=== PATIENT | male | born 1945 | race Caucasian/White ===

== ENCOUNTER 2018-05-28 09:48 | Inpatient (IN) ==
[2018-05-28] MEDS ORDERED: ASPIRIN 325 MG TABLET PO STA (10:35)
[2018-05-28] MEDS ORDERED: ALBUTEROL 2.5 MG/3 ML NEB RESP TX STA (10:42)
[2018-05-28] MEDS ORDERED: ONDANSETRON 4 MG/2 ML VIAL IV PRN (11:14)
[2018-05-28] MEDS ORDERED: MAGNESIUM SULF RIDER 4 GM in PREMIX 1 EACH IV PRN (11:14)
[2018-05-28] MEDS ORDERED: MORPHINE 4 MG/1 ML VIAL IV PRN (11:14)
[2018-05-28] MEDS ORDERED: guaiFENesin/DM ER 600-30 MG TABLET PO PRN (11:14)
[2018-05-28] MEDS ORDERED: DOCUSATE SODIUM 100 MG CAPSULE PO PRN (11:14)
[2018-05-28] MEDS ORDERED: POTASSIUM CHLORIDE RIDER 10 MEQ in PREMIX 1 EACH IV PRN (11:14)
[2018-05-28] MEDS ORDERED: ZALEPLON 5 MG CAPSULE PO PRN (11:14)
[2018-05-28] MEDS ORDERED: MAGNESIUM SULF RIDER 2 GM in PREMIX 1 EACH IV PRN (11:14)
[2018-05-28] MEDS ORDERED: ACETAMINOPHEN 325 MG TABLET PO PRN (11:14)
[2018-05-28] MEDS ORDERED: DEXTROSE 50% 25 GM/50 ML VIAL IV PRN (11:22)
[2018-05-28] MEDS ORDERED: GLUCAGON 1 MG VIAL IM PRN (11:22)
[2018-05-28] MEDS ORDERED: PANTOPRAZOLE 40 MG TABLET PO SCH (11:30)
[2018-05-28] MEDS ORDERED: ENOXAPARIN 80 MG/0.8 ML SYRINGE SUBCUT SCH ×2 (11:30→21:00)
[2018-05-28] MEDS ORDERED: NITROGLYCERIN 2% OINT 1 INCH/GM PACK TOP SCH (12:00)
[2018-05-28] MEDS ORDERED: FUROSEMIDE 40 MG/4 ML VIAL IV SCH (16:00)
[2018-05-28 17:10] LABS: Calcium 8.2 MG/DL (8.5-10.1); Potassium 4.3 MMOL/L (3.5-5.1)
[2018-05-28] MEDS ORDERED: NITROGLYCERIN DRIP 50 MG/250 ML BOTTLE IV ONE (17:57)
[2018-05-28] MEDS ORDERED: NITROGLYCERIN DRIP 50 MG/250 ML BOTTLE IV PRN (17:58)
[2018-05-28 18:16] LABS: ABG Base Excess -0.9 MMOL/L (-2.5-2.5); ABG HCO3 23.4 MMOL/L (20-26); ABG Oxygen Saturation 94.9 % (95-100); ABG PCO2 38.1 MM HG (35-48); ABG PH 7.407 (7.35-7.45); ABG PO2 76.2 MM HG (80-95); ABG TCO2 24.6 MMOL/L (23-27)
[2018-05-28] MEDS: METOPROLOL TARTRATE 25 MG TABLET PO SCH (18:26)
[2018-05-28] MEDS ORDERED: methylPREDNISolone SOD SUC 125 MG/2 ML VIAL IV ONE (18:28)
[2018-05-28] MEDS ORDERED: diphenhydrAMINE CAP 50 MG CAPSULE ONE (18:28)
[2018-05-28] MEDS ORDERED: diphenhydrAMINE CAP 50 MG CAPSULE PO ONE (18:28)
[2018-05-28] MEDS ORDERED: methylPREDNISolone SOD SUC 125 MG/2 ML VIAL ONE (18:28)
[2018-05-28] MEDS ORDERED: HEPARIN/NACL 0.9% 2 UNITS/ML 1,000 ML IV ONE (18:37)
[2018-05-28] MEDS ORDERED: LIDOCAINE 1%/EPI INJ 20 ML VIAL ONE ×2 (18:37→19:23)
[2018-05-28] MEDS ORDERED: MIDAZOLAM 2 MG/2 ML VIAL ONE (18:43)
[2018-05-28] MEDS ORDERED: fentaNYL 100 MCG/2 ML VIAL ONE (18:43)
[2018-05-28] MEDS ORDERED: ENOXAPARIN 60 MG/0.6 ML SYRINGE ONE (18:58)
[2018-05-28] MEDS ORDERED: HEPARIN/NACL 0.9% 2 UNITS/ML 500 ML IV ONE (19:15)
[2018-05-28] MEDS ORDERED: SODIUM CHLORIDE 0.9% 1,000 ML IV PRN (19:35)
[2018-05-28 19:56] LABS: Basophils % 0.3 % (0.0-0.8); Eosinophils % 0.1 % (0.00-10.9); Hemoglobin 12.4 GM/DL (14.0-18.0); Immature Granulocytes % 0.7 %; Immature Granulocytes Absolute 0.08 #; Lymphocytes % 8.4 % (21.2-54.2); Mean Corpuscular HGB Conc 33.5 GM/DL (32-36); Mean Corpuscular Hemoglobin 32 PG (27-34); Mean Corpuscular Volume 96.4 FL (87-102); Mean Platelet Volume 10.4 FL (9.6-12.0); Monocytes # 0.6 10*3/uL (0.11-0.8); Monocytes % 5.3 % (1.7-12.7); Neutrophils # 9.6 10*3/uL (1.4-7.4); Neutrophils % 85.2 % (38.7-73.9); Platelet Count 271 T/CUMM (130-400); Red Blood Count 3.84 MC/CUMM (3.8-5.5); Red Cell Distribution Width 12.4 % (9.3-17.3); White Blood Count 11.3 T/CUMM (4-12)
[2018-05-28] MEDS ORDERED: PAPAVERINE 60 MG/2 ML VIAL ONE (20:02)
[2018-05-28] MEDS ORDERED: CEFUROXIME 1,500 MG VIAL ONE (20:02)
[2018-05-28] MEDS ORDERED: VANCOMYCIN 1,000 MG VIAL ONE (20:03)
[2018-05-28 20:04] LABS: INR 1.2; PT Patient Result 12.6 SECS
[2018-05-28 20:05] LABS: Partial Thromboplastin Time 44.6 SECS (0-40)
[2018-05-28 20:11] LABS: Calcium 7.7 MG/DL (8.5-10.1); Osmolality,Calculated 277.7 MOS/KG (273-304); Potassium 4.4 MMOL/L (3.5-5.1)
[2018-05-28] MEDS ORDERED: SODIUM BICARBONATE 50 MEQ/50 ML SYRINGE IV ONE (20:41)
[2018-05-28] MEDS ORDERED: CALCIUM CHLORIDE 1,000 MG/10 ML SYRINGE IV ONE (20:41)
[2018-05-28] MEDS ORDERED: NITROPRUSSIDE 50 MG/2 ML VIAL ONE ×2 (20:41→20:42)
[2018-05-28] MEDS ORDERED: ATROPINE 1 MG/10 ML SYRINGE ONE (20:41)
[2018-05-28] MEDS ORDERED: SIMVASTATIN 40 MG TABLET PO SCH (21:00)
[2018-05-28] MEDS ORDERED: CARVEDILOL 3.125 MG TABLET PO SCH (21:00)
[2018-05-28 21:09] LABS: ABG Base Excess -1.1 MMOL/L (-2.5-2.5); ABG HCO3 24.4 MMOL/L (20-26); ABG Oxygen Saturation 99.5 % (95-100); ABG PCO2 43.6 MM HG (35-48); ABG PH 7.366 (7.35-7.45); ABG PO2 525.3 MM HG (80-95); ABG TCO2 25.8 MMOL/L (23-27); Glucose Heart Surgery 124 MG/DL (74-106); Hemoglobin Heart Surgery 13.4 G/DL (14.0-18.0); Potassium Heart/CVR 3.8 MMOL/L (3.5-5.1); Sodium Heart/CVR 137 MMOL/L (135-145)
[2018-05-28 21:11] LABS: Patient Temperature 37 CELCIUS
[2018-05-28] MEDS ORDERED: FAMOTIDINE 20 MG/2 ML VIAL IV ONE (21:48)
[2018-05-28] MEDS ORDERED: PHENYLEPHRINE DRIP 40 MG/250 ML PREMIX IV ONE (22:24)
[2018-05-28 22:55] LABS: Hematocrit Heart Surgery 25.5 PERCENT (42-52); Hemoglobin Heart Surgery 8.2 G/DL (14.0-18.0); PCO2 Patient Temp Venous 42.9 MM HG; PH Patient Temp Venous 7.387; PO2 Patient Temp Venous 45.7 MM HG; Potassium Heart/CVR 4.7 MMOL/L (3.5-5.1); VBG Base Excess 0.7 MEQ/L (0-4); VBG HCO3 24.8 MEQ/L (24-28); VBG Oxygen Saturation 80.8 %; VBG PCO2 42.9 MMHG (41-51); VBG PH 7.387; VBG PO2 45.7 MMHG (17-40)
[2018-05-28 23:27] LABS: Hematocrit Heart Surgery 27.2 PERCENT (42-52); Hemoglobin Heart Surgery 8.8 G/DL (14.0-18.0); PH Patient Temp Venous 7.423; PO2 Patient Temp Venous 43.4 MM HG; Potassium Heart/CVR 4.6 MMOL/L (3.5-5.1); VBG Base Excess 0.5 MEQ/L (0-4); VBG HCO3 24.6 MEQ/L (24-28); VBG PH 7.423; VBG PO2 43.4 MMHG (17-40)
[2018-05-28] MEDS ORDERED: ALBUMIN 5% 12.5 GM/250 ML VIAL IV ONE (23:51)
[2018-05-29 00:13] LABS: Hemoglobin Heart Surgery 8.6 G/DL (14.0-18.0); VBG Base Excess -0.3 MEQ/L (0-4); VBG HCO3 24.1 MEQ/L (24-28); VBG Oxygen Saturation 75.6 %; VBG PCO2 38.2 MMHG (41-51); VBG PH 7.418
[2018-05-29 00:19] LABS: PCO2 Patient Temp Venous 38.2 MM HG; PH Patient Temp Venous 7.418
[2018-05-29 00:56] LABS: ABG Base Excess -0.7 MMOL/L (-2.5-2.5); ABG HCO3 23.8 MMOL/L (20-26); ABG Oxygen Saturation 99.6 % (95-100); ABG PH 7.339 (7.35-7.45); ABG TCO2 23.4 MMOL/L (23-27); Glucose Heart Surgery 244 MG/DL (74-106); Hematocrit Heart Surgery 27.8 PERCENT (42-52); Ionized Calcium Arterial 1.25 MMOL/L (1.21-1.46); PH Patient Temp Arterial 7.339; Patient Temperature 37 CELCIUS; Potassium Heart/CVR 3.4 MMOL/L (3.5-5.1); Sodium Heart/CVR 138 MMOL/L (135-145)
[2018-05-29] MEDS ORDERED: POTASSIUM CHLORIDE RIDER 100 ML IV ONE (01:02)
[2018-05-29] MEDS ORDERED: MAGNESIUM SULF RIDER 50 ML IV ONE (01:03)
[2018-05-29] MEDS ORDERED: DEXTROSE 5% KCL 20 MEQ 20 MEQ/1,000 ML BAG IV ONE (01:15)
[2018-05-29] MEDS ORDERED: FUROSEMIDE 20 MG/2 ML VIAL ONE (01:16)
[2018-05-29] MEDS ORDERED: MAGNESIUM SULFATE 10 GM/20 ML VIAL IV ONE (01:16)
[2018-05-29] MEDS ORDERED: methylPREDNISolone SOD SUC 1,000 MG/8 ML VIAL ONE (01:16)
[2018-05-29] MEDS ORDERED: HEPARIN 10,000 UNIT/10 ML VIAL ONE (01:16)
[2018-05-29] MEDS ORDERED: PROTAMINE SULFATE 250 MG/25 ML VIAL IV ONE (01:16)
[2018-05-29] MEDS ORDERED: MANNITOL 12.5 GM/50 ML VIAL IV ONE (01:16)
[2018-05-29] MEDS ORDERED: ALBUMIN 25% 25 GM/100 ML VIAL IV ONE (01:16)
[2018-05-29] MEDS ORDERED: SODIUM CHLORIDE 0.9% 200 ML IV ONE (01:16)
[2018-05-29] MEDS ORDERED: DOBUTamine 500 MG/250 ML PREMIX IV ONE (01:37)
[2018-05-29] MEDS: DOBUTamine 500 MG/250 ML PREMIX IV PRN ×2 (01:50→06:45)
[2018-05-29] MEDS: POTASSIUM CHLORIDE RIDER 20 MEQ in PREMIX 1 EACH IV PRN ×2 (01:50→18:46)
[2018-05-29] MEDS: PHENYLEPHRINE DRIP 40 MG/250 ML PREMIX IV PRN ×5 (01:50→13:04)
[2018-05-29] MEDS: MAGNESIUM SULF RIDER 2 GM in PREMIX 1 EACH IV PRN (01:50)
[2018-05-29] MEDS: LACTATED RINGERS 1,000 ML IV PRN ×8 (01:52→18:39)
[2018-05-29] MEDS ORDERED: MIDAZOLAM 10 MG/2 ML VIAL ONE ×3 (02:03→18:04)
[2018-05-29] MEDS ORDERED: ePHEDrine 50 MG/ML AMP ONE (02:03)
[2018-05-29] MEDS ORDERED: SUFentanil 250 MCG/5 ML AMP ONE (02:03)
[2018-05-29] MEDS ORDERED: LACTATED RINGERS 250 ML IV PRN (02:20)
[2018-05-29] MEDS ORDERED: DEXTROSE 50% 25 GM/50 ML VIAL IV PRN ×2 (02:20)
[2018-05-29] MEDS ORDERED: VECURONIUM 10 MG VIAL IV PRN ×2 (02:20)
[2018-05-29] MEDS ORDERED: NITROPRUSSIDE 100 MG in DEXTROSE 5% 250 ML IV PRN (02:20)
[2018-05-29] MEDS ORDERED: INSULIN REGULAR 100 UNIT/ML IV ONE (02:20)
[2018-05-29] MEDS ORDERED: INSULIN REGULAR 100 UNIT/ML IV PRN (02:20)
[2018-05-29] MEDS ORDERED: ONDANSETRON 4 MG/2 ML VIAL IV PRN (02:20)
[2018-05-29] MEDS ORDERED: MAGNESIUM SULF RIDER 4 GM in PREMIX 1 EACH IV PRN (02:20)
[2018-05-29] MEDS ORDERED: SODIUM CHLORIDE 0.45% 1,000 ML IV SCH ×2 (02:20)
[2018-05-29] MEDS ORDERED: MIDAZOLAM 10 MG/2 ML VIAL IV PRN (02:20)
[2018-05-29] MEDS ORDERED: ACETAMINOPHEN 650 MG SUPP RECTAL PRN (02:20)
[2018-05-29 02:22] LABS: ABG Base Excess -1.7 MMOL/L (-2.5-2.5); ABG Oxygen Saturation 99.9 % (95-100); ABG PCO2 50.3 MM HG (35-48); ABG PH 7.304 (7.35-7.45); ABG TCO2 23.4 MMOL/L (23-27); Glucose Heart Surgery 185 MG/DL (74-106); Hematocrit Heart Surgery 25.8 PERCENT (42-52); Hemoglobin Heart Surgery 8.3 G/DL (14.0-18.0); Potassium Heart/CVR 3.7 MMOL/L (3.5-5.1)
[2018-05-29] MEDS: ALBUMIN 5% 12.5 GM in PREMIX 1 EACH IV PRN ×7 (02:35→09:13)
[2018-05-29 02:38] LABS: INR 1.3; PT Patient Result 13.8 SECS; Partial Thromboplastin Time 35.9 SECS (0-40)
[2018-05-29 02:39] LABS: Basophils % 0.1 % (0.0-0.8); Eosinophils % 0.2 % (0.00-10.9); Hematocrit 24.5 VOL% (42.0-52.0); Hemoglobin 8.1 GM/DL (14.0-18.0); Immature Granulocytes % 0.8 %; Lymphocytes # 0.7 10*3/uL (1.4-4.0); Lymphocytes % 5.2 % (21.2-54.2); Mean Corpuscular HGB Conc 33.1 GM/DL (32-36); Mean Corpuscular Hemoglobin 32 PG (27-34); Mean Corpuscular Volume 95.3 FL (87-102); Mean Platelet Volume 10.3 FL (9.6-12.0); Monocytes # 0.5 10*3/uL (0.11-0.8); Monocytes % 3.9 % (1.7-12.7); Neutrophils # 11.7 10*3/uL (1.4-7.4); Neutrophils % 89.8 % (38.7-73.9); Platelet Count 132 T/CUMM (130-400); Red Blood Count 2.57 MC/CUMM (3.8-5.5); Red Cell Distribution Width 14.1 % (9.3-17.3)
[2018-05-29] MEDS: CALCIUM CHLORIDE 1,000 MG/10 ML SYRINGE IV PRN ×4 (02:47→03:12)
[2018-05-29 02:53] LABS: CKMB % 9.5 %
[2018-05-29 02:57] LABS: Troponin I 21.1 NG/ML (0.00-0.045)
[2018-05-29] MEDS ORDERED: SODIUM BICARBONATE 50 MEQ/50 ML SYRINGE IV ONE ×3 (03:09→03:35)
[2018-05-29 03:14] LABS: ABG Base Excess -3.4 MMOL/L (-2.5-2.5); ABG HCO3 21.5 MMOL/L (20-26); ABG Oxygen Saturation 99.6 % (95-100); ABG PCO2 50.4 MM HG (35-48); ABG PH 7.274 (7.35-7.45); ABG TCO2 22.4 MMOL/L (23-27); Glucose Heart Surgery 162 MG/DL (74-106); Hematocrit Heart Surgery 21.7 PERCENT (42-52); Hemoglobin Heart Surgery 6.9 G/DL (14.0-18.0); Potassium Heart/CVR 3.9 MMOL/L (3.5-5.1)
[2018-05-29] MEDS ORDERED: ATROPINE 1 MG/10 ML SYRINGE IV ONE (03:19)
[2018-05-29 03:25] LABS: Albumin 2.4 G/DL (3.4-5.0); Bilirubin,Direct 0.22 MG/DL (0.0-0.20); Bilirubin,Total 0.9 MG/DL (0.2-1.0); Calcium 7.7 MG/DL (8.5-10.1); Osmolality,Calculated 289.8 MOS/KG (273-304); Potassium 3.8 MMOL/L (3.5-5.1); Total Protein 4.6 G/DL (6.4-8.3)
[2018-05-29 03:47] LABS: ABG Base Excess 0.9 MMOL/L (-2.5-2.5); ABG HCO3 25.3 MMOL/L (20-26); ABG Oxygen Saturation 99.6 % (95-100); ABG PCO2 47.8 MM HG (35-48); ABG PH 7.357 (7.35-7.45); ABG TCO2 24.8 MMOL/L (23-27); Glucose Heart Surgery 192 MG/DL (74-106); Hematocrit Heart Surgery 27.4 PERCENT (42-52); Potassium Heart/CVR 3.9 MMOL/L (3.5-5.1)
[2018-05-29 03:48] LABS: Hemoglobin Heart Surgery 8.8 G/DL (14.0-18.0)
[2018-05-29] MEDS ORDERED: ALBUTEROL/IPRATROPIUM 3 ML NEB RESP TX PRN (04:02)
[2018-05-29] MEDS: POTASSIUM CHLORIDE RIDER 10 MEQ in PREMIX 1 EACH IV PRN ×2 (04:36→19:20)
[2018-05-29] MEDS ORDERED: FUROSEMIDE 40 MG/4 ML VIAL IV ONE ×3 (04:40→18:50)
[2018-05-29] MEDS: INSULIN REGULAR DRIP 100 ML IV SCH ×2 (04:40→09:23)
[2018-05-29] MEDS: KETOROLAC 30 MG/1 ML VIAL IV SCH ×4 (04:43→20:30)
[2018-05-29 04:56] LABS: Hematocrit Heart Surgery 29.4 PERCENT (42-52); Hemoglobin Heart Surgery 9.5 G/DL (14.0-18.0); PH Patient Temp Venous 7.283; PO2 Patient Temp Venous 26.2 MM HG; Potassium Heart/CVR 4.7 MMOL/L (3.5-5.1); VBG Base Excess -2.1 MEQ/L (0-4); VBG HCO3 21.8 MEQ/L (24-28); VBG Oxygen Saturation 39.4 %; VBG PH 7.283; VBG PO2 26.2 MMHG (17-40)
[2018-05-29] MEDS ORDERED: FUROSEMIDE 40 MG/4 ML VIAL ONE (04:58)
[2018-05-29 04:59] LABS: ABG Base Excess -3.6 MMOL/L (-2.5-2.5); ABG HCO3 21.5 MMOL/L (20-26); ABG Oxygen Saturation 99.7 % (95-100); ABG PH 7.352 (7.35-7.45); Glucose Heart Surgery 181 MG/DL (74-106); Hematocrit Heart Surgery 28.8 PERCENT (42-52); Hemoglobin Heart Surgery 9.3 G/DL (14.0-18.0); Potassium Heart/CVR 4.6 MMOL/L (3.5-5.1)
[2018-05-29 05:52] LABS: Basophils % 0.1 % (0.0-0.8); Eosinophils % 0.1 % (0.00-10.9); Hematocrit 25.3 VOL% (42.0-52.0); Hemoglobin 8.2 GM/DL (14.0-18.0); Immature Granulocytes % 0.8 %; Immature Granulocytes Absolute 0.08 #; Lymphocytes # 0.8 10*3/uL (1.4-4.0); Lymphocytes % 7.9 % (21.2-54.2); Mean Corpuscular HGB Conc 32.4 GM/DL (32-36); Mean Corpuscular Hemoglobin 31 PG (27-34); Mean Corpuscular Volume 95.1 FL (87-102); Mean Platelet Volume 10.3 FL (9.6-12.0); Monocytes # 0.6 10*3/uL (0.11-0.8); Monocytes % 6.5 % (1.7-12.7); Neutrophils # 8.4 10*3/uL (1.4-7.4); Neutrophils % 84.6 % (38.7-73.9); Platelet Count 189 T/CUMM (130-400); Red Blood Count 2.66 MC/CUMM (3.8-5.5); Red Cell Distribution Width 14.8 % (9.3-17.3); White Blood Count 9.9 T/CUMM (4-12)
[2018-05-29 05:54] LABS: Albumin 3.7 G/DL (3.4-5.0); Bilirubin,Direct 0.59 MG/DL (0.0-0.20); Bilirubin,Total 1.6 MG/DL (0.2-1.0); Calcium 6.9 MG/DL (8.5-10.1); Osmolality,Calculated 287.8 MOS/KG (273-304); Total Protein 5.2 G/DL (6.4-8.3)
[2018-05-29 05:59] LABS: CKMB % 8.5 %; INR 1.5; PT Patient Result 15.3 SECS
[2018-05-29 06:00] LABS: Troponin I 19.7 NG/ML (0.00-0.045)
[2018-05-29 06:10] LABS: Partial Thromboplastin Time 53.7 SECS (0-40)
[2018-05-29] MEDS ORDERED: PANTOPRAZOLE 40 MG VIAL IV ONE (06:14)
[2018-05-29] MEDS ORDERED: PROTAMINE SULFATE 50 MG/5 ML VIAL IV ONE ×4 (06:14→14:27)
[2018-05-29 06:16] LABS: Albumin 3.5 G/DL (3.4-5.0); Bilirubin,Direct 0.62 MG/DL (0.0-0.20); Bilirubin,Total 1.6 MG/DL (0.2-1.0); Calcium 6.9 MG/DL (8.5-10.1); Osmolality,Calculated 289.7 MOS/KG (273-304); Potassium 4.1 MMOL/L (3.5-5.1); Total Protein 5.1 G/DL (6.4-8.3)
[2018-05-29] MEDS: METOPROLOL TARTRATE 25 MG TABLET PO SCH (07:05)
[2018-05-29] MEDS: ALBUTEROL/IPRATROPIUM 3 ML NEB RESP TX SCH ×5 (07:59→22:36)
[2018-05-29 08:56] LABS: ABG Base Excess -4.1 MMOL/L (-2.5-2.5); ABG Oxygen Saturation 99.2 % (95-100); ABG TCO2 20.1 MMOL/L (23-27); Glucose Heart Surgery 190 MG/DL (74-106); Hematocrit Heart Surgery 27.4 PERCENT (42-52); Hemoglobin Heart Surgery 8.8 G/DL (14.0-18.0); Potassium Heart/CVR 4.3 MMOL/L (3.5-5.1)
[2018-05-29] MEDS ORDERED: CLOPIDOGREL 75 MG TABLET PO SCH (09:00)
[2018-05-29] MEDS ORDERED: ASPIRIN EC 81 MG TABLET PO SCH (09:00)
[2018-05-29 10:29] LABS: ABG Base Excess -2.7 MMOL/L (-2.5-2.5); ABG HCO3 22.2 MMOL/L (20-26); ABG Oxygen Saturation 98.6 % (95-100); ABG PCO2 36.7 MM HG (35-48); ABG PH 7.384 (7.35-7.45); ABG TCO2 20.4 MMOL/L (23-27)
[2018-05-29] MEDS: CEFUROXIME INJ 1,500 MG in SODIUM CHLORIDE 0.9% 100 ML IV SCH ×2 (10:47→22:21)
[2018-05-29] MEDS: CHLORHEXIDINE 0.12% ORAL RINSE 60 ML BOTTLE SWISH/SPIT SCH ×2 (10:47→22:17)
[2018-05-29 11:10] LABS: Hematocrit 24.7 VOL% (42.0-52.0); Hemoglobin 8.3 GM/DL (14.0-18.0)
[2018-05-29 11:53] LABS: CKMB % 8.6 %
[2018-05-29 11:58] LABS: Troponin I 34.5 NG/ML (0.00-0.045)
[2018-05-29 13:16] LABS: ABG Base Excess -1.1 MMOL/L (-2.5-2.5); ABG HCO3 23.5 MMOL/L (20-26); ABG PCO2 34.2 MM HG (35-48); ABG PH 7.431 (7.35-7.45); ABG PO2 95.6 MM HG (80-95); Glucose Heart Surgery 133 MG/DL (74-106); Hemoglobin Heart Surgery 8.7 G/DL (14.0-18.0); Potassium Heart/CVR 4.1 MMOL/L (3.5-5.1)
[2018-05-29 14:58] LABS: ABG Base Excess 0.2 MMOL/L (-2.5-2.5); ABG HCO3 24.6 MMOL/L (20-26); ABG Oxygen Saturation 97.6 % (95-100); ABG PCO2 37.6 MM HG (35-48); ABG PH 7.421 (7.35-7.45); ABG PO2 89.7 MM HG (80-95); Glucose Heart Surgery 113 MG/DL (74-106); Hematocrit Heart Surgery 23.6 PERCENT (42-52); Hemoglobin Heart Surgery 7.6 G/DL (14.0-18.0); Potassium Heart/CVR 3.7 MMOL/L (3.5-5.1)
[2018-05-29 15:24] LABS: Albumin 3.4 G/DL (3.4-5.0); Bilirubin,Total 2.5 MG/DL (0.2-1.0); Osmolality,Calculated 288.7 MOS/KG (273-304); Potassium 3.8 MMOL/L (3.5-5.1); Total Protein 5.3 G/DL (6.4-8.3)
[2018-05-29] MEDS ORDERED: PHENYLEPHRINE INJ 80 MG in SODIUM CHLORIDE 0.9% 242 ML IV PRN (15:36)
[2018-05-29] MEDS ORDERED: PHENYLEPHRINE INJ 160 MG in SODIUM CHLORIDE 0.9% 234 ML IV PRN (15:38)
[2018-05-29] MEDS ORDERED: VANCOMYCIN 1,000 MG VIAL ONE (15:41)
[2018-05-29] MEDS ORDERED: CEFUROXIME 1,500 MG VIAL ONE (15:41)
[2018-05-29 16:44] LABS: ABG Base Excess 0.3 MMOL/L (-2.5-2.5); ABG HCO3 24.7 MMOL/L (20-26); ABG PCO2 44.3 MM HG (35-48); ABG PH 7.371 (7.35-7.45); ABG TCO2 24.2 MMOL/L (23-27); Glucose Heart Surgery 90 MG/DL (74-106); Hemoglobin Heart Surgery 7.4 G/DL (14.0-18.0); PCO2 Patient Temp Arterial 44.3 MMHG; PH Patient Temp Arterial 7.371; Patient Temperature 37 CELCIUS; Potassium Heart/CVR 3.8 MMOL/L (3.5-5.1); Sodium Heart/CVR 141 MMOL/L (135-145)
[2018-05-29] MEDS ORDERED: PHENYLEPHRINE DRIP 20 MG/250 ML PREMIX IV ONE (18:03)
[2018-05-29] MEDS ORDERED: PHENYLEPHRINE 1 MG/10 ML SYRINGE IV ONE (18:04)
[2018-05-29] MEDS ORDERED: MINERAL OIL/PETROLATUM OPH OINT 3.5 GM TUBE ONE (18:04)
[2018-05-29] MEDS ORDERED: SEVOFLURANE 1 UNIT/15 MINUTE INH ONE (18:04)
[2018-05-29] MEDS ORDERED: ROCURONIUM 100 MG/10 ML VIAL IV ONE (18:05)
[2018-05-29] MEDS ORDERED: LACTATED RINGERS 2,000 ML IV ONE (18:05)
[2018-05-29] MEDS ORDERED: SODIUM CHLORIDE 0.9% 100 ML IV ONE (18:05)
[2018-05-29 18:26] LABS: ABG Base Excess 0.1 MMOL/L (-2.5-2.5); ABG HCO3 24.5 MMOL/L (20-26); ABG Oxygen Saturation 92.8 % (95-100); ABG PCO2 40.1 MM HG (35-48); ABG PO2 65.6 MM HG (80-95); ABG TCO2 22.9 MMOL/L (23-27); Glucose Heart Surgery 117 MG/DL (74-106); Potassium Heart/CVR 3.7 MMOL/L (3.5-5.1)
[2018-05-29 18:29] LABS: VBG Base Excess 0.4 MEQ/L (0-4); VBG HCO3 24.2 MEQ/L (24-28); VBG Oxygen Saturation 56.1 %; VBG PCO2 45.8 MMHG (41-51); VBG PH 7.363; VBG PO2 31.7 MMHG (17-40)
[2018-05-29] MEDS ORDERED: AMIODARONE INJ 150 MG in DEXTROSE 5% 100 ML IV ONE (18:48)
[2018-05-29] MEDS ORDERED: FUROSEMIDE 40 MG/4 ML VIAL IV PRN (18:51)
[2018-05-29] MEDS ORDERED: AMIODARONE INJ 450 MG in DEXTROSE 5% 241 ML IV SCH (19:00)
[2018-05-29 22:05] LABS: ABG Base Excess 1.2 MMOL/L (-2.5-2.5); ABG HCO3 25.5 MMOL/L (20-26); ABG Oxygen Saturation 98.6 % (95-100); ABG PCO2 40.9 MM HG (35-48); ABG PH 7.409 (7.35-7.45); ABG TCO2 23.6 MMOL/L (23-27); Glucose Heart Surgery 132 MG/DL (74-106); Hematocrit Heart Surgery 30.4 PERCENT (42-52); Hemoglobin Heart Surgery 9.8 G/DL (14.0-18.0); Potassium Heart/CVR 4.6 MMOL/L (3.5-5.1)
[2018-05-29 23:03] LABS: CKMB % 7.8 %
[2018-05-29 23:08] LABS: Troponin I 65.1 NG/ML (0.00-0.045)
[2018-05-30] MEDS: ALBUTEROL/IPRATROPIUM 3 ML NEB RESP TX SCH ×6 (02:27→22:55)
[2018-05-30] MEDS: INSULIN REGULAR DRIP 100 ML IV SCH (02:53)
[2018-05-30] MEDS: KETOROLAC 30 MG/1 ML VIAL IV SCH ×2 (02:55→10:19)
[2018-05-30] MEDS: ALBUMIN 5% 12.5 GM in PREMIX 1 EACH IV PRN ×3 (04:04→19:44)
[2018-05-30 04:30] LABS: ABG Base Excess 1.6 MMOL/L (-2.5-2.5); ABG HCO3 25.9 MMOL/L (20-26); ABG Oxygen Saturation 97.8 % (95-100); ABG PCO2 42.9 MM HG (35-48); ABG PH 7.401 (7.35-7.45); ABG TCO2 24.4 MMOL/L (23-27); Glucose Heart Surgery 126 MG/DL (74-106); Hematocrit Heart Surgery 29.3 PERCENT (42-52); Hemoglobin Heart Surgery 9.4 G/DL (14.0-18.0); Potassium Heart/CVR 4.3 MMOL/L (3.5-5.1)
[2018-05-30] MEDS: POTASSIUM CHLORIDE RIDER 20 MEQ in PREMIX 1 EACH IV PRN ×3 (04:40→17:57)
[2018-05-30 04:43] LABS: Hematocrit 28.6 VOL% (42.0-52.0); Hemoglobin 9.3 GM/DL (14.0-18.0); Immature Granulocytes % 0.4 %; Immature Granulocytes Absolute 0.03 #; Lymphocytes # 0.5 10*3/uL (1.4-4.0); Lymphocytes % 5.6 % (21.2-54.2); Mean Corpuscular HGB Conc 32.5 GM/DL (32-36); Mean Corpuscular Hemoglobin 29 PG (27-34); Mean Corpuscular Volume 88.3 FL (87-102); Mean Platelet Volume 11.3 FL (9.6-12.0); Monocytes # 0.5 10*3/uL (0.11-0.8); Monocytes % 5.6 % (1.7-12.7); Neutrophils # 7.6 10*3/uL (1.4-7.4); Neutrophils % 88.4 % (38.7-73.9); Platelet Count 141 T/CUMM (130-400); Red Blood Count 3.24 MC/CUMM (3.8-5.5); Red Cell Distribution Width 17.2 % (9.3-17.3); White Blood Count 8.6 T/CUMM (4-12)
[2018-05-30 05:06] LABS: Polychromasia Few
[2018-05-30 05:07] LABS: Hypochromasia Slight; Platelet Estimate Adequate
[2018-05-30 05:25] LABS: CKMB % 5.3 %
[2018-05-30 05:26] LABS: Troponin I 80.4 NG/ML (0.00-0.045)
[2018-05-30 05:32] LABS: Bilirubin,Direct 0.96 MG/DL (0.0-0.20); Bilirubin,Total 2.4 MG/DL (0.2-1.0); Calcium 7.8 MG/DL (8.5-10.1); Osmolality,Calculated 290.8 MOS/KG (273-304); Potassium 4.4 MMOL/L (3.5-5.1)
[2018-05-30] MEDS: MAGNESIUM SULF RIDER 2 GM in PREMIX 1 EACH IV PRN (07:55)
[2018-05-30 08:17] LABS: Apearance,Urine CLEAR (Clear); Bilirubin,Urine Negative (Negative); Blood, Urine Negative (Negative); Glucose,Urine (UA) Negative (Negative); Ketones,Urine Negative (Negative); Mucus,Urine Occasional /LPF (Occasional); Nitrite,Urine Negative (Negative); Protein,Urine Negative; RBC,Urine <1 /HPF (0-4); Urine Color Yellow (Yellow); Urine Specific Gravity 1.009 (1.001-1.035); Urine Urobilinogen < 2.0 EU/DL (0.2-1.0)
[2018-05-30] MEDS ORDERED: CALCIUM GLUCONATE 1,000 MG in SODIUM CHLORIDE 0.9% 100 ML IV ONE (10:00)
[2018-05-30] MEDS: PANTOPRAZOLE 40 MG VIAL IV SCH ×2 (10:16→20:07)
[2018-05-30] MEDS: PROPOFOL 1,000 MG/100 ML BOTTLE IV SCH (10:16)
[2018-05-30] MEDS: CEFUROXIME INJ 1,500 MG in SODIUM CHLORIDE 0.9% 100 ML IV SCH (10:17)
[2018-05-30] MEDS: CHLORHEXIDINE 0.12% ORAL RINSE 60 ML BOTTLE SWISH/SPIT SCH ×2 (10:17→20:08)
[2018-05-30] MEDS: DOBUTamine 500 MG/250 ML PREMIX IV PRN (10:25)
[2018-05-30] MEDS: INSULIN REGULAR 100 UNIT/ML SUBCUT SCH ×4 (12:47→23:36)
[2018-05-30] MEDS ORDERED: FUROSEMIDE 40 MG/4 ML VIAL IV ONE (14:00)
[2018-05-30] MEDS ORDERED: HEPARIN/NACL 0.9% 2 UNITS/ML 500 ML IV ONE (17:33)
[2018-05-30 17:52] LABS: ABG Base Excess 3.4 MMOL/L (-2.5-2.5); ABG HCO3 27.5 MMOL/L (20-26); ABG Oxygen Saturation 97.3 % (95-100); ABG PCO2 45.2 MM HG (35-48); ABG PH 7.409 (7.35-7.45); ABG PO2 97.8 MM HG (80-95); ABG TCO2 26.3 MMOL/L (23-27); Glucose Heart Surgery 144 MG/DL (74-106); Hematocrit Heart Surgery 28.1 PERCENT (42-52); Potassium Heart/CVR 4.1 MMOL/L (3.5-5.1)
[2018-05-30] MEDS ORDERED: LIDOCAINE 100 MG/5 ML SYRINGE IV ONE (18:24)
[2018-05-30] MEDS ORDERED: LIDOCAINE DRIP 2,000 MG/250 ML PREMIX IV SCH (18:30)
[2018-05-30] MEDS: SODIUM CHLORIDE 0.45% 1,000 ML IV SCH ×2 (21:16→21:17)
[2018-05-31] MEDS: ALBUTEROL/IPRATROPIUM 3 ML NEB RESP TX SCH ×6 (03:04→23:11)
[2018-05-31 03:13] LABS: ABG Base Excess 5.8 MMOL/L (-2.5-2.5); ABG HCO3 30.2 MMOL/L (20-26); ABG Oxygen Saturation 97.3 % (95-100); ABG PCO2 43.3 MM HG (35-48); ABG PH 7.461 (7.35-7.45); ABG TCO2 31.5 MMOL/L (23-27); Glucose Heart Surgery 100 MG/DL (74-106); Hemoglobin Heart Surgery 9.2 G/DL (14.0-18.0)
[2018-05-31 03:24] LABS: Hematocrit 25.5 VOL% (42.0-52.0); Hemoglobin 8.3 GM/DL (14.0-18.0); Immature Granulocytes % 0.7 %; Immature Granulocytes Absolute 0.07 #; Lymphocytes # 0.8 10*3/uL (1.4-4.0); Lymphocytes % 8.5 % (21.2-54.2); Mean Corpuscular HGB Conc 32.5 GM/DL (32-36); Mean Corpuscular Hemoglobin 29 PG (27-34); Mean Corpuscular Volume 89.8 FL (87-102); Mean Platelet Volume 12.1 FL (9.6-12.0); Monocytes # 0.5 10*3/uL (0.11-0.8); Monocytes % 5.4 % (1.7-12.7); Neutrophils # 8.3 10*3/uL (1.4-7.4); Neutrophils % 85.4 % (38.7-73.9); Platelet Count 95 T/CUMM (130-400); Red Blood Count 2.84 MC/CUMM (3.8-5.5); White Blood Count 9.7 T/CUMM (4-12)
[2018-05-31] MEDS: INSULIN REGULAR 100 UNIT/ML SUBCUT SCH ×6 (03:48→23:17)
[2018-05-31 03:59] LABS: Albumin 3.3 G/DL (3.4-5.0); Bilirubin,Direct 0.9 MG/DL (0.0-0.20); Bilirubin,Total 2.1 MG/DL (0.2-1.0); Calcium 7.8 MG/DL (8.5-10.1); Osmolality,Calculated 293.8 MOS/KG (273-304); Potassium 4.1 MMOL/L (3.5-5.1); Total Protein 5.2 G/DL (6.4-8.3)
[2018-05-31] MEDS: POTASSIUM CHLORIDE RIDER 20 MEQ in PREMIX 1 EACH IV PRN ×3 (03:59→14:25)
[2018-05-31 04:02] LABS: Risk Ratio 2.58; VLDL CHOLESTEROL 16.6 MG/DL
[2018-05-31] MEDS: ALBUMIN 5% 12.5 GM in PREMIX 1 EACH IV PRN ×2 (04:43→12:09)
[2018-05-31] MEDS ORDERED: FUROSEMIDE 40 MG/4 ML VIAL IV ONE ×2 (05:00→14:20)
[2018-05-31 05:06] LABS: Band Neutrophils 7 % (0-10); Lymphocytes 7 % (20-55); Nucleated Red Blood Cells 1 (0-5); Segmented Neutrophils 84 % (50-85); Total Cells Counted 100
[2018-05-31 05:07] LABS: Hypochromasia Slight; Microcytosis 1+; Platelet Estimate Decreased; Polychromasia Slight
[2018-05-31] MEDS: PANTOPRAZOLE 40 MG VIAL IV SCH ×2 (08:47→20:20)
[2018-05-31] MEDS: CHLORHEXIDINE 0.12% ORAL RINSE 60 ML BOTTLE SWISH/SPIT SCH ×2 (08:48→20:20)
[2018-05-31] MEDS: PROPOFOL 1,000 MG/100 ML BOTTLE IV SCH ×2 (08:52→22:44)
[2018-05-31] MEDS: MIDAZOLAM 2 MG/2 ML VIAL IV PRN ×2 (10:59→14:56)
[2018-05-31 11:47] LABS: ABG Base Excess 3.7 MMOL/L (-2.5-2.5); ABG Oxygen Saturation 97.5 % (95-100); ABG PCO2 35.8 MM HG (35-48); ABG PH 7.496 (7.35-7.45); ABG PO2 111.8 MM HG (80-95); ABG TCO2 28.1 MMOL/L (23-27); Glucose Heart Surgery 110 MG/DL (74-106); Hemoglobin Heart Surgery 10.1 G/DL (14.0-18.0); Potassium Heart/CVR 4.5 MMOL/L (3.5-5.1)
[2018-05-31] MEDS: SODIUM CHLORIDE 0.45% 1,000 ML IV SCH ×4 (12:09→19:30)
[2018-05-31] MEDS: METOPROLOL TARTRATE 25 MG TABLET NG SCH ×3 (12:10→20:20)
[2018-05-31] MEDS: POTASSIUM CHLORIDE RIDER 10 MEQ in PREMIX 1 EACH IV PRN ×2 (17:39→20:38)
[2018-05-31] MEDS: MORPHINE 4 MG/1 ML VIAL IV PRN (19:45)
[2018-05-31 20:26] LABS: Basophils % 0.1 % (0.0-0.8); Eosinophils % 0.1 % (0.00-10.9); Hemoglobin 9.5 GM/DL (14.0-18.0); Immature Granulocytes % 1.2 %; Immature Granulocytes Absolute 0.12 #; Lymphocytes # 0.9 10*3/uL (1.4-4.0); Mean Corpuscular HGB Conc 32.8 GM/DL (32-36); Mean Corpuscular Hemoglobin 29 PG (27-34); Mean Corpuscular Volume 88.7 FL (87-102); Mean Platelet Volume 11.9 FL (9.6-12.0); Monocytes # 0.6 10*3/uL (0.11-0.8); Monocytes % 5.9 % (1.7-12.7); Neutrophils # 8.3 10*3/uL (1.4-7.4); Neutrophils % 83.7 % (38.7-73.9); Red Blood Count 3.27 MC/CUMM (3.8-5.5); Red Cell Distribution Width 16.7 % (9.3-17.3); White Blood Count 9.9 T/CUMM (4-12)
[2018-05-31 20:42] LABS: Platelet Count 78 T/CUMM (130-400)
[2018-05-31 22:18] LABS: Hypochromasia 1+; Microcytosis 1+
[2018-05-31 22:19] LABS: Platelet Estimate Decreased
[2018-06-01] MEDS: POTASSIUM CHLORIDE RIDER 20 MEQ in PREMIX 1 EACH IV PRN (00:04)
[2018-06-01] MEDS: ALBUTEROL/IPRATROPIUM 3 ML NEB RESP TX SCH ×6 (03:18→23:21)
[2018-06-01 03:19] LABS: ABG Base Excess 5.1 MMOL/L (-2.5-2.5); ABG HCO3 29.1 MMOL/L (20-26); ABG PCO2 37.8 MM HG (35-48); ABG PH 7.488 (7.35-7.45); Glucose Heart Surgery 108 MG/DL (74-106); Hematocrit Heart Surgery 31.1 PERCENT (42-52); Hemoglobin Heart Surgery 10.1 G/DL (14.0-18.0); Potassium Heart/CVR 4.5 MMOL/L (3.5-5.1)
[2018-06-01 03:22] LABS: Basophils % 0.1 % (0.0-0.8); Eosinophils % 0.1 % (0.00-10.9); Hematocrit 29.3 VOL% (42.0-52.0); Hemoglobin 9.5 GM/DL (14.0-18.0); Immature Granulocytes % 0.8 %; Immature Granulocytes Absolute 0.08 #; Lymphocytes # 0.9 10*3/uL (1.4-4.0); Lymphocytes % 8.4 % (21.2-54.2); Mean Corpuscular HGB Conc 32.4 GM/DL (32-36); Mean Corpuscular Hemoglobin 29 PG (27-34); Mean Corpuscular Volume 89.6 FL (87-102); Mean Platelet Volume 12.1 FL (9.6-12.0); Monocytes # 0.6 10*3/uL (0.11-0.8); Monocytes % 6.3 % (1.7-12.7); NRBC # 0.03 10*3/uL; Neutrophils # 8.5 10*3/uL (1.4-7.4); Neutrophils % 84.3 % (38.7-73.9); Red Blood Count 3.27 MC/CUMM (3.8-5.5); Red Cell Distribution Width 16.3 % (9.3-17.3); White Blood Count 10.1 T/CUMM (4-12)
[2018-06-01 03:24] LABS: Platelet Count 75 T/CUMM (130-400)
[2018-06-01] MEDS: INSULIN REGULAR 100 UNIT/ML SUBCUT SCH ×6 (03:26→23:42)
[2018-06-01 03:43] LABS: Albumin 3.3 G/DL (3.4-5.0); Bilirubin,Total 2.2 MG/DL (0.2-1.0); CKMB % 1.5 %; Calcium 7.8 MG/DL (8.5-10.1); Osmolality,Calculated 287.4 MOS/KG (273-304); Potassium 4.6 MMOL/L (3.5-5.1); Total Protein 5.3 G/DL (6.4-8.3); Troponin I 22.3 NG/ML (0.00-0.045)
[2018-06-01 03:55] LABS: Hypochromasia Slight; Microcytosis 1+; Platelet Estimate Decreased
[2018-06-01] MEDS: DOBUTamine 500 MG/250 ML PREMIX IV PRN (04:30)
[2018-06-01] MEDS: POTASSIUM CHLORIDE RIDER 10 MEQ in PREMIX 1 EACH IV PRN (04:33)
[2018-06-01] MEDS: MORPHINE 10 MG/1 ML VIAL IV PRN ×4 (04:44→20:11)
[2018-06-01] MEDS: PANTOPRAZOLE 40 MG VIAL IV SCH ×2 (08:13→21:22)
[2018-06-01] MEDS: METOPROLOL TARTRATE 25 MG TABLET NG SCH ×2 (08:13→21:22)
[2018-06-01] MEDS: CHLORHEXIDINE 0.12% ORAL RINSE 60 ML BOTTLE SWISH/SPIT SCH ×2 (08:13→21:22)
[2018-06-01 09:47] LABS: ABG HCO3 28.9 MMOL/L (20-26); ABG Oxygen Saturation 97.9 % (95-100); ABG PCO2 43.5 MM HG (35-48); ABG PH 7.442 (7.35-7.45); ABG TCO2 26.9 MMOL/L (23-27); Glucose Heart Surgery 104 MG/DL (74-106); Hematocrit Heart Surgery 30.8 PERCENT (42-52); Hemoglobin Heart Surgery 9.9 G/DL (14.0-18.0); Potassium Heart/CVR 4.4 MMOL/L (3.5-5.1)
[2018-06-01] MEDS: PROPOFOL 1,000 MG/100 ML BOTTLE IV SCH (14:37)
[2018-06-01] MEDS ORDERED: HEPARIN/NACL 0.9% 2 UNITS/ML 500 ML IV ONE (17:12)
[2018-06-01] MEDS: APIXABAN 2.5 MG TABLET PO SCH (21:22)
[2018-06-01] MEDS: SODIUM CHLORIDE 0.45% 1,000 ML IV SCH ×2 (21:38)
[2018-06-02] MEDS: MORPHINE 10 MG/1 ML VIAL IV PRN ×6 (01:14→21:15)
[2018-06-02] MEDS: ALBUTEROL/IPRATROPIUM 3 ML NEB RESP TX SCH ×6 (03:42→23:14)
[2018-06-02 03:57] LABS: ABG Base Excess 3.7 MMOL/L (-2.5-2.5); ABG HCO3 27.7 MMOL/L (20-26); ABG Oxygen Saturation 98.4 % (95-100); ABG PCO2 46.6 MM HG (35-48); ABG PH 7.403 (7.35-7.45); ABG TCO2 26.3 MMOL/L (23-27)
[2018-06-02 04:04] LABS: Basophils % 0.1 % (0.0-0.8); Eosinophils % 0.2 % (0.00-10.9); Hematocrit 31.5 VOL% (42.0-52.0); Hemoglobin 9.9 GM/DL (14.0-18.0); Immature Granulocytes % 0.6 %; Immature Granulocytes Absolute 0.06 #; Lymphocytes # 0.7 10*3/uL (1.4-4.0); Lymphocytes % 6.6 % (21.2-54.2); Mean Corpuscular HGB Conc 31.4 GM/DL (32-36); Mean Corpuscular Hemoglobin 28 PG (27-34); Mean Corpuscular Volume 90.5 FL (87-102); Mean Platelet Volume 11.7 FL (9.6-12.0); Monocytes # 0.9 10*3/uL (0.11-0.8); Monocytes % 8.7 % (1.7-12.7); Neutrophils # 8.6 10*3/uL (1.4-7.4); Neutrophils % 83.8 % (38.7-73.9); Platelet Count 93 T/CUMM (130-400); Red Blood Count 3.48 MC/CUMM (3.8-5.5); Red Cell Distribution Width 15.9 % (9.3-17.3); White Blood Count 10.3 T/CUMM (4-12)
[2018-06-02 04:41] LABS: Calcium 7.6 MG/DL (8.5-10.1); Osmolality,Calculated 278.8 MOS/KG (273-304); Potassium 4.4 MMOL/L (3.5-5.1)
[2018-06-02 04:43] LABS: Hypochromasia 1+; Microcytosis 1+; Platelet Estimate Decreased
[2018-06-02] MEDS: INSULIN REGULAR 100 UNIT/ML SUBCUT SCH ×5 (04:45→20:15)
[2018-06-02] MEDS: METOPROLOL TARTRATE 25 MG TABLET NG SCH ×2 (09:25→21:13)
[2018-06-02] MEDS: PANTOPRAZOLE 40 MG VIAL IV SCH ×2 (09:25→21:13)
[2018-06-02] MEDS: APIXABAN 2.5 MG TABLET PO SCH ×2 (09:25→21:13)
[2018-06-02] MEDS: SODIUM CHLORIDE 0.9% 1,000 ML IV SCH (09:26)
[2018-06-02] MEDS: CHLORHEXIDINE 0.12% ORAL RINSE 60 ML BOTTLE SWISH/SPIT SCH ×2 (09:27→21:14)
[2018-06-02] MEDS: DILTIAZEM INJ 100 MG in SODIUM CHLORIDE 0.9% 100 ML IV SCH ×2 (11:40→23:02)
[2018-06-02] MEDS ORDERED: DILTIAZEM 25 MG/5 ML VIAL IV ONE (11:44)
[2018-06-02] MEDS ORDERED: SODIUM CHLORIDE 0.9% 100 ML IV ONE (11:44)
[2018-06-02] MEDS ORDERED: DILTIAZEM 100 MG VIAL.ADD IV ONE (11:44)
[2018-06-02] MEDS ORDERED: DILTIAZEM 50 MG/10 ML VIAL IV ONE (12:33)
[2018-06-02] MEDS: ASPIRIN CHEW 81 MG TABLET PO SCH (13:51)
[2018-06-02] MEDS: PROPOFOL 1,000 MG/100 ML BOTTLE IV SCH (13:51)
[2018-06-03] MEDS: MORPHINE 10 MG/1 ML VIAL IV PRN (00:20)
[2018-06-03] MEDS: INSULIN REGULAR 100 UNIT/ML SUBCUT SCH ×7 (01:00→23:47)
[2018-06-03] MEDS: ALBUTEROL/IPRATROPIUM 3 ML NEB RESP TX SCH ×6 (03:30→23:19)
[2018-06-03 04:07] LABS: ABG Base Excess 3.1 MMOL/L (-2.5-2.5); ABG HCO3 27.2 MMOL/L (20-26); ABG Oxygen Saturation 97.7 % (95-100); ABG PCO2 48.6 MM HG (35-48); ABG PH 7.382 (7.35-7.45); ABG TCO2 26.2 MMOL/L (23-27)
[2018-06-03 04:25] LABS: Basophils % 0.1 % (0.0-0.8); Eosinophils % 0.1 % (0.00-10.9); Hematocrit 31.1 VOL% (42.0-52.0); Hemoglobin 9.8 GM/DL (14.0-18.0); Immature Granulocytes % 0.4 %; Immature Granulocytes Absolute 0.04 #; Lymphocytes # 0.6 10*3/uL (1.4-4.0); Lymphocytes % 5.6 % (21.2-54.2); Mean Corpuscular HGB Conc 31.5 GM/DL (32-36); Mean Corpuscular Hemoglobin 29 PG (27-34); Mean Corpuscular Volume 91.5 FL (87-102); Mean Platelet Volume 11.6 FL (9.6-12.0); Monocytes # 1.1 10*3/uL (0.11-0.8); Monocytes % 10.3 % (1.7-12.7); Neutrophils # 8.7 10*3/uL (1.4-7.4); Neutrophils % 83.5 % (38.7-73.9); Platelet Count 117 T/CUMM (130-400); Red Cell Distribution Width 15.8 % (9.3-17.3); White Blood Count 10.4 T/CUMM (4-12)
[2018-06-03 04:39] LABS: Calcium 7.7 MG/DL (8.5-10.1); Osmolality,Calculated 286.4 MOS/KG (273-304); Potassium 4.4 MMOL/L (3.5-5.1)
[2018-06-03 04:42] LABS: Albumin 2.8 G/DL (3.4-5.0); Bilirubin,Direct 2.2 MG/DL (0.0-0.20); Bilirubin,Indirect 1.7 MG/DL (0.0-1.0); Bilirubin,Total 3.9 MG/DL (0.2-1.0); Total Protein 5.2 G/DL (6.4-8.3)
[2018-06-03] MEDS: POTASSIUM CHLORIDE RIDER 20 MEQ in PREMIX 1 EACH IV PRN (05:35)
[2018-06-03] MEDS: PANTOPRAZOLE 40 MG VIAL IV SCH ×2 (08:25→20:31)
[2018-06-03] MEDS: CHLORHEXIDINE 0.12% ORAL RINSE 60 ML BOTTLE SWISH/SPIT SCH ×2 (08:25→20:31)
[2018-06-03] MEDS: APIXABAN 2.5 MG TABLET PO SCH (08:25)
[2018-06-03] MEDS: METOPROLOL TARTRATE 25 MG TABLET NG SCH ×2 (08:25→20:31)
[2018-06-03] MEDS: ASPIRIN CHEW 81 MG TABLET PO SCH (08:25)
[2018-06-03] MEDS: DILTIAZEM 60 MG TABLET PO SCH ×2 (09:05→20:31)
[2018-06-03] MEDS: PROPOFOL 1,000 MG/100 ML BOTTLE IV SCH ×2 (09:32→15:45)
[2018-06-03] MEDS: SODIUM CHLORIDE 0.9% 1,000 ML IV SCH (09:34)
[2018-06-03 09:50] LABS: ABG Base Excess 3.9 MMOL/L (-2.5-2.5); ABG HCO3 27.8 MMOL/L (20-26); ABG PCO2 42.5 MM HG (35-48); ABG PH 7.435 (7.35-7.45); ABG PO2 57.8 MM HG (80-95); ABG TCO2 25.7 MMOL/L (23-27); Glucose Heart Surgery 118 MG/DL (74-106); Hematocrit Heart Surgery 33.3 PERCENT (42-52); Hemoglobin Heart Surgery 10.8 G/DL (14.0-18.0); Potassium Heart/CVR 4.5 MMOL/L (3.5-5.1)
[2018-06-03] MEDS: MORPHINE 4 MG/1 ML VIAL IV PRN ×3 (10:44→20:32)
[2018-06-03] MEDS: methylPREDNISolone SOD SUC 40 MG/1 ML VIAL IV SCH ×2 (11:47→18:05)
[2018-06-03] MEDS ORDERED: FUROSEMIDE 40 MG/4 ML VIAL IV ONE ×2 (13:23→22:00)
[2018-06-03 14:42] LABS: ABG Base Excess 3.7 MMOL/L (-2.5-2.5); ABG HCO3 27.7 MMOL/L (20-26); ABG Oxygen Saturation 95.1 % (95-100); ABG PCO2 51.7 MM HG (35-48); ABG PH 7.371 (7.35-7.45); ABG PO2 79.2 MM HG (80-95); Glucose Heart Surgery 155 MG/DL (74-106); Hematocrit Heart Surgery 34.1 PERCENT (42-52); Potassium Heart/CVR 4.7 MMOL/L (3.5-5.1)
[2018-06-03] MEDS: PHENYLEPHRINE DRIP 40 MG/250 ML PREMIX IV PRN (15:30)
[2018-06-03] MEDS: ALBUMIN 5% 12.5 GM in PREMIX 1 EACH IV PRN (15:45)
[2018-06-03 16:30] LABS: ABG Base Excess 3.6 MMOL/L (-2.5-2.5); ABG HCO3 27.7 MMOL/L (20-26); ABG Oxygen Saturation 99.8 % (95-100); ABG PCO2 39.7 MM HG (35-48); ABG PH 7.453 (7.35-7.45); ABG TCO2 25.3 MMOL/L (23-27)
[2018-06-03] MEDS ORDERED: ETOMIDATE 40 MG/20 ML VIAL IV ONE (16:31)
[2018-06-03] MEDS ORDERED: SUCCINYLCHOLINE 200 MG/10 ML VIAL ONE (16:31)
[2018-06-03] MEDS: ROSUVASTATIN 20 MG TABLET PO SCH (20:31)
[2018-06-04] MEDS: PHENYLEPHRINE DRIP 40 MG/250 ML PREMIX IV PRN ×2 (01:52→08:22)
[2018-06-04] MEDS: methylPREDNISolone SOD SUC 40 MG/1 ML VIAL IV SCH ×3 (02:55→18:13)
[2018-06-04] MEDS: PROPOFOL 1,000 MG/100 ML BOTTLE IV SCH ×3 (02:56→22:13)
[2018-06-04] MEDS: ALBUTEROL/IPRATROPIUM 3 ML NEB RESP TX SCH ×6 (03:20→23:20)
[2018-06-04 03:57] LABS: Basophils % 0.1 % (0.0-0.8); Hematocrit 30.3 VOL% (42.0-52.0); Hemoglobin 9.7 GM/DL (14.0-18.0); Immature Granulocytes Absolute 0.12 #; Lymphocytes # 0.8 10*3/uL (1.4-4.0); Lymphocytes % 6.2 % (21.2-54.2); Mean Corpuscular Hemoglobin 29 PG (27-34); Mean Platelet Volume 11.2 FL (9.6-12.0); Monocytes # 0.6 10*3/uL (0.11-0.8); Monocytes % 4.9 % (1.7-12.7); NRBC # 0.02 10*3/uL; Neutrophils # 10.7 10*3/uL (1.4-7.4); Neutrophils % 87.8 % (38.7-73.9); Platelet Count 185 T/CUMM (130-400); Red Blood Count 3.33 MC/CUMM (3.8-5.5); Red Cell Distribution Width 15.9 % (9.3-17.3); White Blood Count 12.1 T/CUMM (4-12)
[2018-06-04 03:58] LABS: ABG Base Excess 4.8 MMOL/L (-2.5-2.5); ABG HCO3 28.8 MMOL/L (20-26); ABG Oxygen Saturation 99.2 % (95-100); ABG PCO2 34.4 MM HG (35-48); ABG PH 7.514 (7.35-7.45); ABG TCO2 25.1 MMOL/L (23-27)
[2018-06-04 04:18] LABS: Calcium 8.1 MG/DL (8.5-10.1); Osmolality,Calculated 293.1 MOS/KG (273-304)
[2018-06-04] MEDS: INSULIN REGULAR 100 UNIT/ML SUBCUT SCH ×5 (04:28→20:55)
[2018-06-04] MEDS: POTASSIUM CHLORIDE RIDER 20 MEQ in PREMIX 1 EACH IV PRN ×2 (04:40→12:58)
[2018-06-04 05:37] LABS: ABG Base Excess 4.1 MMOL/L (-2.5-2.5); ABG HCO3 28.1 MMOL/L (20-26); ABG Oxygen Saturation 97.2 % (95-100); ABG PCO2 40.7 MM HG (35-48); ABG PH 7.451 (7.35-7.45); ABG PO2 91.6 MM HG (80-95); ABG TCO2 25.7 MMOL/L (23-27)
[2018-06-04] MEDS: SODIUM CHLORIDE 0.9% 1,000 ML IV SCH (08:22)
[2018-06-04] MEDS: PANTOPRAZOLE 40 MG VIAL IV SCH ×2 (08:23→21:24)
[2018-06-04] MEDS: CHLORHEXIDINE 0.12% ORAL RINSE 60 ML BOTTLE SWISH/SPIT SCH ×2 (08:24→21:24)
[2018-06-04] MEDS: METOPROLOL TARTRATE 50 MG TABLET NG SCH ×2 (09:12→21:24)
[2018-06-04] MEDS ORDERED: ENOXAPARIN 40 MG/0.4 ML SYRINGE SUBCUT SCH (11:00)
[2018-06-04] MEDS ORDERED: GLUCAGON 1 MG VIAL IM PRN (12:44)
[2018-06-04] MEDS: MORPHINE 10 MG/1 ML VIAL IV PRN (20:51)
[2018-06-04] MEDS: ROSUVASTATIN 20 MG TABLET PO SCH (21:24)
[2018-06-05] MEDS: INSULIN REGULAR 100 UNIT/ML SUBCUT SCH ×6 (00:50→21:03)
[2018-06-05] MEDS: ALBUTEROL/IPRATROPIUM 3 ML NEB RESP TX SCH ×6 (03:10→22:59)
[2018-06-05] MEDS: methylPREDNISolone SOD SUC 40 MG/1 ML VIAL IV SCH ×3 (03:55→18:14)
[2018-06-05] MEDS: MORPHINE 10 MG/1 ML VIAL IV PRN ×2 (04:05→12:40)
[2018-06-05 04:18] LABS: ABG Base Excess 6.2 MMOL/L (-2.5-2.5); ABG HCO3 30.5 MMOL/L (20-26); ABG Oxygen Saturation 94.9 % (95-100); ABG PCO2 43.2 MM HG (35-48); ABG PH 7.467 (7.35-7.45); ABG PO2 83.9 MM HG (80-95); ABG TCO2 31.8 MMOL/L (23-27)
[2018-06-05 04:50] LABS: Basophils % 0.1 % (0.0-0.8); Hematocrit 29.4 VOL% (42.0-52.0); Hemoglobin 9.5 GM/DL (14.0-18.0); Immature Granulocytes % 1.1 %; Immature Granulocytes Absolute 0.15 #; Lymphocytes # 0.6 10*3/uL (1.4-4.0); Lymphocytes % 4.6 % (21.2-54.2); Mean Corpuscular HGB Conc 32.3 GM/DL (32-36); Mean Corpuscular Hemoglobin 29 PG (27-34); Mean Corpuscular Volume 90.7 FL (87-102); Mean Platelet Volume 11.2 FL (9.6-12.0); Monocytes # 0.8 10*3/uL (0.11-0.8); Monocytes % 6.2 % (1.7-12.7); Neutrophils # 11.7 10*3/uL (1.4-7.4); Platelet Count 192 T/CUMM (130-400); Red Blood Count 3.24 MC/CUMM (3.8-5.5); Red Cell Distribution Width 16.3 % (9.3-17.3); White Blood Count 13.3 T/CUMM (4-12)
[2018-06-05 04:52] LABS: Calcium 7.6 MG/DL (8.5-10.1); Potassium 3.9 MMOL/L (3.5-5.1)
[2018-06-05] MEDS: POTASSIUM CHLORIDE RIDER 20 MEQ in PREMIX 1 EACH IV PRN (06:05)
[2018-06-05] MEDS: POTASSIUM CHLORIDE RIDER 10 MEQ in PREMIX 1 EACH IV PRN (07:10)
[2018-06-05 07:19] LABS: Band Neutrophils 1 % (0-10); Lymphocytes 12 % (20-55); Nucleated Red Blood Cells 1 (0-5); Platelet Estimate Normal; Segmented Neutrophils 85 % (50-85); Total Cells Counted 100
[2018-06-05] MEDS: METOPROLOL TARTRATE 50 MG TABLET NG SCH (08:30)
[2018-06-05] MEDS: PANTOPRAZOLE 40 MG VIAL IV SCH ×2 (08:30→21:04)
[2018-06-05] MEDS: CHLORHEXIDINE 0.12% ORAL RINSE 60 ML BOTTLE SWISH/SPIT SCH ×2 (08:34→21:04)
[2018-06-05] MEDS: SODIUM CHLORIDE 0.9% 1,000 ML IV SCH (08:38)
[2018-06-05] MEDS ORDERED: ENOXAPARIN 40 MG/0.4 ML SYRINGE SUBCUT SCH (10:00)
[2018-06-05] MEDS: LISINOPRIL 5 MG TABLET PO SCH ×2 (11:00→21:20)
[2018-06-05] MEDS: PROPOFOL 1,000 MG/100 ML BOTTLE IV SCH ×2 (11:01→15:41)
[2018-06-05] MEDS: METOPROLOL TARTRATE 50 MG TABLET PO SCH ×2 (15:41→21:03)
[2018-06-05] MEDS: ROSUVASTATIN 20 MG TABLET PO SCH (21:03)
[2018-06-06] MEDS: INSULIN REGULAR 100 UNIT/ML SUBCUT SCH ×4 (00:03→13:01)
[2018-06-06] MEDS: PROPOFOL 1,000 MG/100 ML BOTTLE IV SCH (02:04)
[2018-06-06] MEDS: ALBUTEROL/IPRATROPIUM 3 ML NEB RESP TX SCH ×4 (03:00→15:39)
[2018-06-06] MEDS: methylPREDNISolone SOD SUC 40 MG/1 ML VIAL IV SCH ×2 (03:38→11:09)
[2018-06-06 04:06] LABS: Basophils % 0.1 % (0.0-0.8); Hematocrit 29.1 VOL% (42.0-52.0); Hemoglobin 9.2 GM/DL (14.0-18.0); Immature Granulocytes % 0.5 %; Immature Granulocytes Absolute 0.07 #; Lymphocytes # 0.4 10*3/uL (1.4-4.0); Lymphocytes % 2.8 % (21.2-54.2); Mean Corpuscular HGB Conc 31.6 GM/DL (32-36); Mean Corpuscular Hemoglobin 29 PG (27-34); Mean Platelet Volume 11.1 FL (9.6-12.0); Monocytes # 0.7 10*3/uL (0.11-0.8); Monocytes % 5.4 % (1.7-12.7); Neutrophils # 12.2 10*3/uL (1.4-7.4); Neutrophils % 91.2 % (38.7-73.9); Platelet Count 208 T/CUMM (130-400); Red Blood Count 3.13 MC/CUMM (3.8-5.5); Red Cell Distribution Width 16.6 % (9.3-17.3); White Blood Count 13.4 T/CUMM (4-12)
[2018-06-06 04:17] LABS: Calcium 7.7 MG/DL (8.5-10.1); Osmolality,Calculated 306.7 MOS/KG (273-304); Potassium 4.1 MMOL/L (3.5-5.1)
[2018-06-06 04:26] LABS: ABG Base Excess 5.8 MMOL/L (-2.5-2.5); ABG HCO3 30.7 MMOL/L (20-26); ABG Oxygen Saturation 97.9 % (95-100); ABG PCO2 46.3 MM HG (35-48); ABG TCO2 32.2 MMOL/L (23-27); Allen Test Positive; Pt O2 Delivery Device Ventilator
[2018-06-06 04:56] LABS: Band Neutrophils 2 % (0-10); Lymphocytes 3 % (20-55); Segmented Neutrophils 89 % (50-85); Total Cells Counted 100
[2018-06-06 04:57] LABS: Anisocytosis 1+; Platelet Estimate Adequate
[2018-06-06] MEDS ORDERED: METOPROLOL TARTRATE 50 MG TABLET PO SCH (09:00)
[2018-06-06] MEDS: CHLORHEXIDINE 0.12% ORAL RINSE 60 ML BOTTLE SWISH/SPIT SCH (10:24)
[2018-06-06] MEDS: SODIUM CHLORIDE 0.9% 1,000 ML IV SCH (10:24)
[2018-06-06] MEDS: PANTOPRAZOLE 40 MG VIAL IV SCH (10:25)
[2018-06-06] MEDS: MORPHINE 10 MG/1 ML VIAL IV PRN ×5 (10:44→23:28)
[2018-06-06] MEDS: DEXTROSE 5% LACTATED RINGERS 1,000 ML IV SCH (18:38)
[2018-06-07] MEDS: MORPHINE 10 MG/1 ML VIAL IV PRN ×7 (03:10→22:58)
[2018-06-07] MEDS: DEXTROSE 5% LACTATED RINGERS 1,000 ML IV SCH ×2 (07:04→18:39)
[2018-06-08] MEDS: MORPHINE 10 MG/1 ML VIAL IV PRN ×11 (01:53→18:59)
[2018-06-08] MEDS: DEXTROSE 5% LACTATED RINGERS 1,000 ML IV SCH ×2 (07:28→19:32)
[2018-06-08 18:53] VITALS: BP 61/45
== END 2018-06-08 20:04 | disposition expired | DRG 233 ==
LOC: EDBD → EDUNIT# → N.ED 09:48 → N.EDINP 11:14 → N.CC 11:36 → N.CVR 21:12 → N.ICU 06-01 18:36
PROVIDERS: ADMIT Internal Medicine Clinical Cardiac Electrophysiology; ATTEND Internal Medicine Clinical Cardiac Electrophysiology